=== PATIENT | female | born 2005 | race Caucasian/White ===

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

== ENCOUNTER 2024-12-27 21:42 | Emergency (ER) | payer OTHER, MEDICAID ==
[2024-12-27] MEDS: LORazepam 2 MG/ML SDV IVPUSH ONE (22:27)
[2024-12-27 23:04] LABS: AMPHETAMINES SCREEN, URINE POSITIVE (NEGATIVE); METHADONE SCREEN, URINE NEGATIVE (NEGATIVE); METHAMPHETAMINE SCREEN, URINE POSITIVE (NEGATIVE); OXYCODONE SCREEN,URINE NEGATIVE (NEGATIVE)
[2024-12-27 23:05] LABS: BUPRENORPHINE SCREEN,URINE NEGATIVE (NEGATIVE)
== END 2024-12-27 22:43 ==
LOC: FB.ED 21:42
DX: F41.9 Anxiety disorder, unspecified (principal)
CPT/HCPCS: 80307; 81025; 96374; 99284; J2060

== ENCOUNTER 2025-06-07 18:16 | Emergency (ER) | payer MEDICAID, OTHER ==
[2025-06-07] MEDS ORDERED: Sodium Chloride 0.9% 10 ML Syringe FLUSH PRN (18:36)
[2025-06-07] MEDS: Ondansetron 4 MG/2 ML SDV IVPUSH ONE (18:51)
[2025-06-07 18:57] LABS: MEAN PLATELET VOLUME 8.3 fL (7.1-12.4); PLATELET COUNT,PLT 286 x10(3)uL (151-488); RED BLOOD CELL COUNT 4.29 x10(6)uL (3.60-5.20); RED CELL DISTRIBUTION WIDTH 14.5 % (12.3-16.5); WHITE BLOOD CELL COUNT,WBC 8.6 x10-3/uL (3.0-10.3)
[2025-06-07 19:10] LABS: CARBON DIOXIDE,CO2 25 mmol/L (21-32); CHLORIDE,CL 102 mmol/L (100-110); CREATININE 0.4 mg/dL (0.55-1.02); EST CRCL DRUG DOSING (CG) 210.02 mL/min; ESTIMATED GFR 145 mL/min (>60); GLUCOSE RANDOM 102 mg/dL (80-116); POTASSIUM,K 3.1 mmol/L (3.5-5.3); SODIUM,NA 137 mmol/L (135-145)
[2025-06-07 19:11] LABS: LYMPHOCYTES PERCENT MAN 7 % (13-37); MONOCYTES PERCENT MAN 6 % (4-12); SEG NEUTROPHILS PERCENT MAN 87 % (46-82)
[2025-06-07 19:16] LABS: A/G RATIO 0.5; ALANINE AMINOTRANSFERASE,ALT 10 U/L (12-36); ASPARTATE AMNIOTRANSFERASE,AST 13 IU/L (5-25); BILIRUBIN TOTAL 1.2 mg/dL (0.1-1.3); PROTEIN TOTAL,TP 7.4 g/dL (6.0-8.0)
[2025-06-07 19:18] LABS: BLOOD UREA NITROGEN,BUN < 5 mg/dL (7-18)
[2025-06-07 20:11] LABS: GLUCOSE,URINE NORMAL (NORMAL); OCCULT BLOOD,URINE NEGATIVE (NEGATIVE)
[2025-06-07 20:20] LABS: APPEARANCE,URINE CLEAR (CLEAR); SQUAMOUS EPITHELIAL CELLS,UR FEW (NS,R,O)
== END 2025-06-07 21:04 | disposition home or self-care (01) ==
LOC: FB.ED 18:16
DX: O99.282 Endocrine, nutritional and metabolic diseases complicating pregnancy, second trimester (principal); E86.0 Dehydration; O98.512 Other viral diseases complicating pregnancy, second trimester; B34.9 Viral infection, unspecified; Z3A.25 25 weeks gestation of pregnancy; Z86.16 Personal history of COVID-19
CPT/HCPCS: 36415; 80053; 81001; 83690; 85025; 87428; 96361; 96374; 99283; 99284; A9270; J2405; J7030